=== PATIENT | male | born 1955 | race African-American/Black ===

== ENCOUNTER → 2018-01-24 20:04 | Outpatient (CLI) | payer OTHER, SELFPAY | PROVIDERS: Visit Provider Nurse Practitioner Family | DX: G47.33 Obstructive sleep apnea (adult) (pediatric) (principal) | CPT/HCPCS: 95810 ==

== ENCOUNTER → 2019-02-16 09:19 | Outpatient (CLI) | payer BC, SELFPAY ==
--- NOTE | 2019-02-16 09:32 | XR_ITS ---
PROCEDURE: XR CERVICAL SPINE 5V Patient Age:64Y CLINICAL INDICATION: CERVICALGIA and left shoulder pain COMPARISON: No exams were available for comparison FINDINGS: Cervical spine no acute findings no fracture or subluxation Cervical spine a non-specific straightening C-spine, can be reflection of muscle spasm or neck pain Moderately pronounced degenerative disc changes/spondylosis of the C-spine most evident C5/6-and C4/5: C5/6 disc space narrowing and spondylosis most evident at C5/6-with generous spurring, and osteophytes encroaching upon the neural foramen bilaterally Also C4/5. Disc space narrowing with spondylosis/posterior spurring also at this level are also yields bilateral foraminal encroachment-left foraminal encroachment more so than right at this level on these plain films C1-C2 relationships appear normal. Facet arthropathy throughout the C-spine most pronounced and most evident right at C2/3, C3/4.. . Apices of the lungs are clear Would also note small less than 2 cm rudimentary cervical ribs at C7. I doubt these would be of significance given their small size IMPRESSION: 1..Degenerative disc changes of cervical spondylosis most evident at C5/6 and C4/5. The posterior spurring yields bilateral foraminal encroachment at these levels of, most evident left at C4/5; and bilateral at C5/6 left at C4/5 2..Also bilateral facet arthropathy.-hypertrophic facet changes most pronounced at C 3/4 and C2/3 on the right 3..small less than 2 cm rudimentary cervical ribs at C7 . Dictated by: Elroy Rosas MD 02/16/2019 10:08 Electronically signed by Elroy Rosas MD in [place] 02/16/2019 10:08
--- NOTE | 2019-02-16 09:33 | XR_ITS ---
PROCEDURE: XR SHOULDER LT MIN 2V Patient Age:64Y CLINICAL INDICATION: LEFT SHOULDER AND ARM PAIN COMPARISON: XR CERVICAL SPINE 5V from 02/16/2019 FINDINGS: Left shoulder: Glenohumeral joint is intact. Humeral head and neck appears satisfactory humeral head normal contour but scapula appears intact. Bones fairly well mineralized at left shoulder Suggestion mild degenerative changes left AC joint likely account for the slight rough appearance and minor hypertrophic changes left AC joint. Left apex lung clear. Upper left ribs unremarkable IMPRESSION: L eft shoulder. . No prominent nor acute findings. Glenohumeral joint intact. Unremarkable Only suggestion of minimal degenerative changes left AC joint Dictated by: Elroy Rosas MD 02/16/2019 10:01 Electronically signed by Elroy Rosas MD in [place] 02/16/2019 10:01
== END ==
PROVIDERS: PCP Internal Medicine; Visit Provider Internal Medicine
DX: M54.2 Cervicalgia (principal); M79.602 Pain in left arm; M25.512 Pain in left shoulder
CPT/HCPCS: 72050; 73030

== ENCOUNTER 2019-04-09 17:00 | Outpatient (RCR) | payer BC, SELFPAY | END 2019-04-09 17:05 | disposition home or self-care (01) | LOC: PT 17:00 | PROVIDERS: Visit Provider Internal Medicine | DX: M54.2 Cervicalgia (principal) | CPT/HCPCS: 97010; 97012; 97014; 97016; 97110; 97163; G0283 ==

== ENCOUNTER → 2020-01-03 10:42 | Outpatient (CLI) | payer BC, SELFPAY ==
--- NOTE | 2020-01-03 10:42 | US_ITS ---
PROCEDURE: US THYROID CLINICAL INDICATION: thyroid nodule Thyroid nodule seen on recent CT scan done at [facility]----- patient says he has stage 3 lung cancer--- COMPARISON: No exams were available for comparison FINDINGS: Right lobe: 2.1cm x 4.0cm x 1.4cm. There is heterogeneous echogenicity. A 6 mm hypoechoic nodules present in the mid aspect of the right lobe posteriorly. This nodule is hypoechoic with some posterior acoustical shadowing consistent with coarse calcification. This is a TR 5 level nodule less than 1 cm. Recommend six-month follow-up. In the lower pole there is a 2.7 x 1.1 cm lobular nodule which is isoechoic to surrounding thyroid tissue. This is a TR 4 level nodule. Ultrasound-guided FNA suggested. Left lobe: 1.9cm x 4.0cm x 1.2cm. There is a 5 mm hypoechoic nodule in the upper pole. Additional findings: This study is somewhat limited technically due to patient's inability to the lie flat. And FNA may be difficult to perform due to patient's condition. IMPRESSION: There are 2 suspicious nodules on the right 1 of which is less than 1 cm. Recommend six-month follow-up. Recommend FNA of the larger nodule in the lower pole on the right. This may be technically difficult due to patient's condition. Dictated by: Pito Garza MD 01/05/2020 08:44 Pito Garza MD in [place] 01/05/2020 08:44
== END ==
PROVIDERS: PCP Internal Medicine; Visit Provider Otolaryngology
DX: E01.0 Iodine-deficiency related diffuse (endemic) goiter (principal); E04.1 Nontoxic single thyroid nodule
CPT/HCPCS: 76536